=== PATIENT | male | born 1950 | race Caucasian/White ===

== ENCOUNTER 2022-12-13 11:31 | Emergency (ER) | payer OTHER, MEDICAID ==
[~2022-12-13] VITALS: Ht 165.1 cm; Wt 73.0 kg
[2022-12-13 14:40] LABS: CHLORIDE 111 mEq/L (98-107)
[2022-12-13 14:56] LABS: BASOPHILS % 0.4 % (0.0-2.0); EOSINOPHILS % 1.9 % (0.0-5.0); HEMATOCRIT. 40.9 % (42.0-52.0); HEMOGLOBIN. 13.2 g/dL (14.0-18.0); LYMPHOCYTES % 13.2 % (20.0-50.0); MEAN CORPUSCULAR HEMOGLOBIN 29.2 pg (28.0-32.0); MEAN CORPUSCULAR VOLUME 90.3 fL (80.0-94.0); MEAN PLATELET VOLUME 7.3 fl (7.4-10.4); MONOCYTES % 9.6 % (2.0-8.0); NEUTROPHILS % 74.9 % (40.0-76.0); PLATELET 230 x1000/uL (130-400); RED BLOOD CELL COUNT 4.54 mill/uL (4.7-6.1)
[2022-12-13] MEDS ORDERED: SODIUM CHLORIDE 0.9% 1,000 ML IV ONE (18:15)
[2022-12-13 21:14] VITALS: BP 110/80
== END 2022-12-13 21:30 | disposition home or self-care (01) ==
LOC: ER 11:31
DX: R60.9 Edema, unspecified (principal); I49.9 Cardiac arrhythmia, unspecified
CPT/HCPCS: 36415; 71045; 80053; 83880; 84484; 85025; 93005; 93970; 96360; 96361; 99285; J7030